=== PATIENT | male | born 1935 | race African-American/Black ===

== ENCOUNTER 2017-10-19 16:41 | Emergency (ER) | payer MEDICARE, OTHER ==
[~2017-10-19] VITALS: Ht 182.9 cm; Wt 97.0 kg
[2017-10-19 17:05] VITALS: BP 119/69
== END 2017-10-20 | disposition left against medical advice (07) ==
LOC: ER 19:40
DX: M54.5 Low back pain (principal); X50.0XXA Overexertion from strenuous movement or load, initial encounter; Y93.89 Activity, other specified; Y92.89 Other specified places as the place of occurrence of the external cause; Y99.8 Other external cause status
CPT/HCPCS: 99281